=== PATIENT | female | born 1980 | race Asian ===

== ENCOUNTER 2017-07-12 07:30 | Inpatient (IN) | payer OTHER ==
[2017-07-12 08:39] VITALS: BMI 24.6
[2017-07-12] MEDS ORDERED: CITRIC ACID/SODIUM CITRATE 30 ML UNIT-DOSE CUP PO ONE (09:09)
[2017-07-12] MEDS ORDERED: ceFAZolin SODIUM 1 GM VIAL ONE (09:14)
[2017-07-12] MEDS ORDERED: morphine SULFATE/Preservative Free 0.5 MG/ML (1cc Syringe) ONE (09:15)
[2017-07-12] MEDS ORDERED: ELECTROLYTE-148 SOLN 1,000 ML IV SCH ×2 (09:15)
--- NOTE | 2017-07-12 09:19 | HP ---
Past Medical History - Primary Care Physician PCP:: Sinan Salazar - Admission Chief Complaint: 36yo P1 with at EGA 39w4d admitted for repeat C/S. History of Present Illness: at EGA 39w4d with previous C/S. AMA GBS(+) GDM A2 History Source: Patient, Medical Record Limitations to Obtaining History: No Limitations - Past Medical History SALAD CHEF: No: Alzheimer's, CVA, Dementia, Migraine, Multiple Sclerosis, Peripheral Neuropathy, Parkinson's, Seizure, Syncope, TIA, Vertigo, Other Cardiovascular: No: AFIB, Aneurysm, Aortic Insufficiency, Aortic Stenosis, CAD, CHF, Deep Vein Thrombosis, HTN, Hyperlipdemia, VT, Mitral Insufficiency, Mitral Stenosis, Murmur, Pulmonary Hypertension, Other Pulmonary: No: Asthma, Bronchitis, Cancer, COPD, O2 Dependent, Pneumonia, Previously Intubated, Pulmonary Embolus, Pulmonary Fibrosis, Sleep Apnea, Other Gastrointestinal: No: Ascites, Cancer, Constipation, Crohn's Disease, Diverticulitis, Diverticulosis, Esophageal Varices, Gastritis, GERD, GI Bleed, Hemorrhoids, Hiatal Hernia, Inflamatory Bowel Disease, Irritable Bowel Disease, Pancreatitis, Peptic Ulcer Disease, Ulcerative Colitis, Other Hepatobiliary: No: Cirrhosis, Cholelithiasis, Cholecystitis, Choledocholithiasis , Hepatitis A, Hepatitis B, Hepatitis C, Other Renal/: No: Renal Failure, Renal Inusuff, BPH, Cancer, Hematuria, Hemodialysis , Neurogenic Bladder, Renal Calculi, UTI, Other Reproductive: No: Ectopic , Endometriosis, Fibroids, PID, Polycystic Ovary Syndrome, Postmenopausal, Other ...: 2 ...Para: 1 ...Term: 1 ...: 0 ...Spon : 0 ...Induced : 0 ...Multiple Gestation: 0 ...LMP: 10/08/16 ... Weeks Gestation by Dates: 39.4 ...EDC by Dates: 07/15/17 Heme/Onc: No: Anemia, B12 Deficiency, Bleeding Disorder, Cancer, Current Chemotherapy, Current Radiation Therapy, Hemochromatosis, Hypercoaguable State, Myeloproliferative Synd, Sickle Cell Disease, Sickle Cell Trait, Thrombocytopenia, Other Infectious Disease: No: AIDS, C-Diff, Herpes Zoster, HIV, MRSA, STD's, Tuberculosis, VREF, Other Psych: No: Addictions, Anxiety, Bipolar, Depression, Panic, Psychosis, Schizophrenia, Other Musculoskeletal: No: Bursitis, Chronic low back pain, Hemiparesis, Hemiplegia, Osteoarthritis, Paraplegia, Other Rheumatology: No: Fibromyalgia, Gout, Lupus, Rheumatoid Arthritis, Sarcoidosis, Vasculitis, Other ENT: No: Allergic Rhinitis, Sinusitis, Other Endocrine: Yes: Hypothyroidism Dermatology: No: Basal Cell, Cellulitis, Eczema, Melanoma, Psoriasis, Squamous Cell, Other - Past Surgical History Past Surgical History: Yes: None Hx Myomectomy: No Hx Transabdominal Cerclage: No - Smoking History Smoking history: Never smoked Have you smoked in the past 12 months: No - Alcohol/Substance Use Hx Alcohol Use: No History of Substance Use: reports: None - Social History Usual Living Arrangement: Yes: With Spouse, With Child ADL: Independent History of Recent Travel: No Home Medications - Allergies Allergies/Adverse Reactions: Allergies Allergy/AdvReac Type Severity Reaction Status Date / Time lactose AdvReac Verified 07/12/17 08:06 - Home Medications Home Medications: Ambulatory Orders Levothyroxine [Synthroid -] 75 mcg PO DAILY 08/15/11 Insulin (Levemir) [Levemir Flexpen -] 18 units SQ DAILY 07/12/17 Family Disease History - Family Disease History Family History: Denies Review of Systems - Review of Systems Constitutional: reports: No Symptoms Eyes: reports: No Symptoms HENT: reports: No Symptoms Neck: reports: No Symptoms Cardiovascular: reports: No Symptoms Respiratory: reports: No Symptoms Gastrointestinal: reports: No Symptoms Genitourinary: reports: No Symptoms Breasts: reports: No Symptoms Reported Musculoskeletal: reports: No Symptoms Integumentary: reports: No Symptoms Neurological: reports: No Symptoms Endocrine: reports: No Symptoms Hematology/Lymphatic: reports: No Symptoms Psychiatric: reports: No Symptoms Pain Intensity: 0 Physical Exam - Maternity Vital Signs: Vital Signs Temperature 97.6 F 07/12/17 08:34 Pulse Rate 70 07/12/17 08:34 Respiratory Rate 20 07/12/17 08:34 Blood Pressure 118/72 07/12/17 08:34 O2 Sat by Pulse Oximetry (%) Constitutional: Yes: Well Nourished, No Distress, Calm Eyes: Yes: WNL, Conjunctiva Clear HENT: Yes: WNL, Atraumatic, Normocephalic Neck: Yes: WNL, Supple, Trachea Midline Cardiovascular: Yes: WNL, Regular Rate and Rhythm Lungs: Clear to auscultation, Normal air movement Breast(s): Yes: WNL - Abdominal Exam/OB Fundal Height: 37 Number of Fetuses: Single Presentation: Vertex Contractions: No Regularity: Irritability Intensity: Unaware Monitor Mode: External Heart Rate (range): 130 Heart Rate Location: Midline Category: I Accelerations: Non-Uniform Decelerations: None - Vaginal Exam/OB Vaginal Bleediing: No Presentation: Vertex/Position - Physical Exam Musculoskeletal: Yes: WNL Extremities: Yes: WNL Edema: No Integumentary: Yes: WNL Deep Tendon Reflex Grade: Normal +2 ...Motor Strength: WNL Psychiatric: Yes: WNL, Alert, Oriented Hemorrhage Risk Assessment - Risk Factors Medium Risk Factors: Yes: Prior , uterine surgery,or multiple laparotomies High Risk Factors: Yes: None Risk Score: 1 Risk Level: Medium Risk Imaging - Results Ultrasound: Report Reviewed Assessment/Plan 36yo P1 with at EGA 39w4d admitted for repeat C/S. We discussed the risks and benefits of C/S at length, including but not limited to scarring, pain , bleeding, infection, injury to underlying organs and structures, need for additional surgery to repair/treat any problems or complications, complications/injuries, etc. The pt verbalized her understanding and requested to proceed with surgery.
[2017-07-12] MEDS ORDERED: ONDANSETRON 4 MG/2 ML VIAL IVPUSH PRN (10:48)
[2017-07-12] MEDS ORDERED: IBUPROFEN 600 MG TABLET (FP) PO PRN (10:48)
[2017-07-12] MEDS ORDERED: morphine SULFATE/Preservative Free 0.5 MG/ML (1cc Syringe) SPIN ONE (10:48)
[2017-07-12] MEDS: LEVOTHYROXINE NA 75 MCG TABLET (FP) PO SCH (10:55)
[2017-07-12] MEDS ORDERED: TUBERCULIN PPD 5 TU/0.1ML SYRINGE (IN PATIENT USE ONLY) ID ONE (11:00)
[2017-07-12] MEDS ORDERED: oxyCODONE HCL 5 MG TABLET PO PRN (11:19)
[2017-07-12] MEDS ORDERED: METHYLERGONOVINE MALEATE 0.2 MG/1 ML AMP IM PRN (11:19)
[2017-07-12] MEDS ORDERED: WITCH HAZEL 50% (TUCKS) 40 PAD/JAR PAD TP PRN (11:19)
[2017-07-12] MEDS ORDERED: IBUPROFEN 800 MG/8 ML IJ IVPB ONE (12:08)
[2017-07-12] MEDS: IBUPROFEN 800 MG/8 ML IJ IVPB PRN ×2 (12:12→21:31)
[2017-07-12] MEDS: ENOXAPARIN NA (PORCINE) 40 MG/0.4 ML DISP.SYRIN SQ SCH (12:36)
[2017-07-12] MEDS ORDERED: OXYTOCIN 20 UNITS in 0.9% NS 20 UNIT/1,000 ML INFUS.BAG IV ONE (12:41)
--- NOTE | 2017-07-12 12:58 | PN ---
Delivery - Delivery Section: Repeat, Low Flap Transverse Type of Anesthesia: Spinal Episiotomy/Laceration: None EBL (cc): 500 Delivery, Single - Stages of Labor Date of Delivery: 07/12/17 Time of Delivery: 10:10 Date Placenta Delivered: 07/12/17 Time Placenta Delivered: 10:11 Placenta: Yes: Manual Removal, Normal Configuration - Condition of Siding Applicator/Professor Criminal Justice Present: Yes Name: Latoya Alaniz Gender: Male Weight: 3.26 kg Position: Left, OT Total Hours ROM (Hrs/Mins): 0hrs 2min - 1 Minute Total Score: 9 5 Minutes Total Score: 9 - Feeding Plan Initial Plan: Elected not to breastfeed exclusively throughout hospitalization Remarks - Remarks Remarks: Uncomplicated repeat LT C/S
--- NOTE | 2017-07-12 13:00 | OP ---
Operative Note - Note: Operative Date: 07/12/17 Pre-Operative Diagnosis: at 39w 4d, prior C/S, declined Operation: Repeat LT C/S Findings: Live baby boy in vtx presentation. No meconium. Normal uterus, ovaries, tubes Post-Operative Diagnosis: Same as Pre-op Surgeon: Sinan Salazar Incident Handler: Nuria Moreno Anesthesiologist/LEASE ADMINISTRATION ANALYST: Dominik Shine Anesthesia: Spinal Specimens Removed: Placenta Estimated Blood Loss (mls): 500 Drains & Tubes with Location: Rodriguez cath Drains, Volume Out (mls): 300 Blood Volume Replaced (mls): 0 Fluid Volume Replaced (mls): 2,100 Operative Report Dictated: Yes
[2017-07-12] MEDS ORDERED: OXYTOCIN 20 UNITS in 0.9% NS 20 UNIT/1,000 ML INFUS.BAG IV SCH (13:30)
[2017-07-13] MEDS: IBUPROFEN 800 MG/8 ML IJ IVPB PRN (05:41)
[2017-07-13] MEDS: LEVOTHYROXINE NA 75 MCG TABLET (FP) PO SCH (06:54)
--- NOTE | 2017-07-13 08:15 | OP ---
DATE OF OPERATION: 07/12/2017 PREOPERATIVE DIAGNOSIS: at estimated gestational age of 39 weeks and 4 days, previous section, patient declines vaginal after section. POSTOPERATIVE DIAGNOSIS: at estimated gestational age of 39 weeks and 4 days, previous section, patient declines vaginal after section. PROCEDURE: Repeat low transverse section via Pfannenstiel skin incision. SURGEON: Sinan Salazar MD BILINGUAL SALES REPRESENTATIVE: Nuria Moreno MD ANESTHESIOLOGIST: Dominik Shine MD ANESTHESIA: Spinal. COMPLICATIONS: None. ESTIMATED BLOOD LOSS: 500 mL. INTRAVENOUS FLUIDS: 2100 mL. URINE OUTPUT: Clear urine, 300 mL, at the end of the procedure. PATHOLOGY: Placenta. FINDINGS: Normal uterus, fallopian tubes and ovaries. Live baby boy in vertex presentation. No meconium in amniotic fluid. DESCRIPTION OF PROCEDURE: The patient was met preoperatively. Risks, benefits, and alternatives of surgery were discussed in details. All questions were answered. The patient was brought to the OR with the IV running. She was placed on the surgical table in a sitting position. The spinal anesthesia was achieved without difficulty. The patient was then placed in a supine position with a leftward tilt. She was prepped and draped in the usual sterile fashion. A Rodriguez catheter was left to drain to gravity. The surgeons then proceeded with the operation. A Pfannenstiel skin incision was made with the knife along the prior scar. The incision was taken down to the level of fascia. The fascia was incised in the midline, and the incision was extended bilaterally using Chavez scissors. The fascia was dissected away from the rectus muscle superiorly and inferiorly using sharp dissection. The rectus muscles were in the midline. The peritoneum was identified and entered sharply. The peritoneal incision was extended superiorly and inferiorly. The bladder was dissected away from the lower uterine segment using sharp dissection. The bladder was reflected downwards. Using a Jalen retractor, the uterus was incised transversely in the lower uterine segment. The uterine incision was extended bilaterally using bandage scissors. The baby was delivered from vertex presentation without complications. The umbilical cord was clamped and cut. The baby was crying spontaneously and was handed to the awaiting demurrage man. The placenta was removed manually and without complications. The uterus was then cleared of all clots and debris using laparotomy laps. The uterine incision was repaired using a 0 Biosyn suture with a running locking stitch. Good hemostasis was noted. The uterine incision was then imbricated using a 0 Biosyn suture with good hemostasis and approximation. The bladder peritoneum was approximated using a 0 Biosyn suture. The operative site was then irrigated using copious amounts of normal saline. Once the saline was aspirated, good hemostasis was confirmed. The abdominal peritoneum was then closed using a 2-0 chromic suture. The rectus muscles were approximated in the midline using several 2-0 chromic sutures. The fascia was closed using a 0 Vicryl suture with a running stitch. The subcutaneous adipose tissues and Scarpas fascia were approximated using several interrupted 2-0 chromic sutures. The skin was closed using a 4-0 Vicryl suture with a subcutaneous stitch. Sponge, lap, and instrument counts were correct. The patient was transferred to the recovery room in stable condition. Nino [id number]
[2017-07-13 08:18] LABS: BASO % 0.5 % (0-2.0); EOS % 0.5 % (0-4.5); HEMATOCRIT 32.8 % (32.4-45.2); HEMOGLOBIN 11.1 GM/dL (10.7-15.3); LYMPH % 10.5 % (8-40); MCH 27.8 pg (25.7-33.7); MCHC 33.8 g/dl (32.0-36.0); MEAN CELL VOLUME 82.1 fl (80-96); MEAN PLT VOLUME 10.2 fl (7.5-11.1); MONO % 5.8 % (3.8-10.2); NEUT % 82.7 % (42.8-82.8); PLATELET COUNT 165 K/MM3 (134-434); RDW 15.7 % (11.6-15.6); WHITE BLOOD COUNT 9.9 K/mm3 (4.0-10.0)
[2017-07-13] MEDS: PRENATAL VITAMINS W/ FOLIC ACID TABLET (FP) PO SCH (09:20)
[2017-07-13] MEDS: ACETAMINOPHEN 325 MG TABLET (FP) PO PRN ×3 (09:21→21:20)
[2017-07-13] MEDS: ENOXAPARIN NA (PORCINE) 40 MG/0.4 ML DISP.SYRIN SQ SCH (09:21)
[2017-07-13] MEDS: IBUPROFEN 600 MG TABLET (FP) PO PRN ×3 (09:25→21:19)
[2017-07-13] MEDS: SIMETHICONE 80 MG TAB.CHEW (FP) PO PRN ×2 (09:27→21:17)
--- NOTE | 2017-07-13 09:29 | PN ---
Progress Note (short form) - Note Progress Note: pod 1 doing well, no c/o ,no excess vaginal bleeding, CBC, BMP 07/13/17 07:30 Last Vital Signs Temp Pulse Resp BP Pulse Ox 98.1 F 67 18 90/63 100 07/13/17 08:20 07/13/17 08:20 07/13/17 08:20 07/13/17 08:20 07/12/17 12:05 abdomen soft, no distension , no cva incison dry, clean no calf tenderness impression pod 1 afebrile , plan ambualte , advance diet pain management
[2017-07-13] MEDS ORDERED: BISACODYL 10 MG SUPP.RECT RC PRN (11:19)
--- NOTE | 2017-07-13 15:20 | PN ---
Progress Note (short form) - Note Progress Note: Anesthesiology 36 y.o. POD#1 s/p repeat C/S under spinal anesthesia. Pt. feels well, sitting-up in bed. She denies h/a. She did have some n/v yesterday but this has resolved. She is able to walk and has no residual paresthesia. VSS. 36 y.o. with stable post-operative course. Continue management as per primary team.
[2017-07-14] MEDS: IBUPROFEN 600 MG TABLET (FP) PO PRN ×4 (01:08→19:51)
[2017-07-14] MEDS: ACETAMINOPHEN 325 MG TABLET (FP) PO PRN ×4 (01:08→19:54)
[2017-07-14] MEDS: SIMETHICONE 80 MG TAB.CHEW (FP) PO PRN ×4 (01:08→19:51)
[2017-07-14] MEDS: LEVOTHYROXINE NA 75 MCG TABLET (FP) PO SCH (06:31)
[2017-07-14] MEDS: PRENATAL VITAMINS W/ FOLIC ACID TABLET (FP) PO SCH (09:47)
[2017-07-14] MEDS: ENOXAPARIN NA (PORCINE) 40 MG/0.4 ML DISP.SYRIN SQ SCH (09:47)
--- NOTE | 2017-07-14 15:00 | PN ---
Progress Note (short form) - Note Progress Note: pod 2 no c/o passing gas , voids ok, CBC, BMP 07/13/17 07:30 Last Vital Signs Temp Pulse Resp BP Pulse Ox 98.4 F 68 18 105/64 100 07/14/17 08:20 07/14/17 08:20 07/14/17 08:20 07/14/17 08:20 07/12/17 12:05 abdomen soft, no distension, no cva incision dry, clean no no calf tenderness plan ambulate cbc in am
[2017-07-15] MEDS: LEVOTHYROXINE NA 75 MCG TABLET (FP) PO SCH (06:23)
[2017-07-15] MEDS: IBUPROFEN 600 MG TABLET (FP) PO PRN ×3 (06:45→21:38)
[2017-07-15] MEDS: ACETAMINOPHEN 325 MG TABLET (FP) PO PRN ×3 (06:47→21:41)
[2017-07-15] MEDS: SIMETHICONE 80 MG TAB.CHEW (FP) PO PRN ×3 (06:48→21:38)
--- NOTE | 2017-07-15 08:02 | DS ---
Physical Exam-FINANCIAL AID ADVISOR Vital Signs: Vital Signs Temperature 97.8 F 07/14/17 22:00 Pulse Rate 75 07/14/17 22:00 Respiratory Rate 18 07/14/17 22:00 Blood Pressure 129/77 07/14/17 22:00 O2 Sat by Pulse Oximetry (%) 100 07/12/17 12:05 Constitutional: Yes: Well Nourished, No Distress, Calm Eyes: Yes: WNL, Conjunctiva Clear, EOM Intact HENT: Yes: WNL, Atraumatic, Normocephalic Neck: Yes: WNL, Supple, Trachea Midline Cardiovascular: Yes: WNL, Regular Rate and Rhythm Respiratory: Yes: WNL, Regular, CTA Bilaterally Gastrointestinal: Yes: WNL ...Rectal Exam: Yes: WNL Renal/: Yes: WNL ....Post : Yes: Uterus firm, Uterus non-tender, Slight lochia rubra Breast(s): Yes: WNL Musculoskeletal: Yes: WNL Extremities: Yes: WNL Edema: Yes Edema: LLE: Trace, RLE: Trace Integumentary: Yes: WNL Wound/Incision: Yes: Clean/Dry, Well Approximated, Sutures Intact Neurological: Yes: WNL, Alert, Oriented ...Motor Strength: WNL Psychiatric: Yes: WNL, Alert, Oriented Delivery - Delivery Section: Repeat, Low Flap Transverse Type of Anesthesia: Spinal Episiotomy/Laceration: None EBL (cc): 500 Delivery, Single - Stages of Labor Date of Delivery: 07/12/17 Time of Delivery: 10:10 Time Placenta Delivered: 10:11 Placenta: Yes: Manual Removal, Normal Configuration - Condition of Infant Herb Counselor/Second Grade Teacher Present: Yes Name: Latoya Alaniz Gender: Male Weight: 7 lb 3 oz Position: Left, OT Total Hours ROM (Hrs/Mins): 0hrs 2min - 1 Minute Total Score: 9 5 Minutes Total Score: 9 - [place] Feeding Plan Initial Plan: Elected not to breastfeed exclusively throughout hospitalization Discharge Summary Reason For Visit: C/SECTION Procedures: Principal: repeat LST c/s Hospital Course: no complication Condition: Good - Instructions Diet, Activity, Other Instructions: regular diet, follow up office 1 week, if fever, pain. heavy vaginal bleeding call Referrals: Salvador Nugent MD [Staff Physician] - Disposition: HOME - Home Medications Comprehensive Discharge Medication List: Ambulatory Orders Levothyroxine [Synthroid -] 75 mcg PO DAILY 08/15/11 Insulin (Levemir) [Levemir Flexpen -] 18 units SQ DAILY 07/12/17 Ibuprofen [Motrin -] 600 mg PO QID #28 tablet 07/14/17
[2017-07-15 08:18] LABS: BASO % 0.3 % (0-2.0); EOS % 1.5 % (0-4.5); HEMATOCRIT 36.9 % (32.4-45.2); HEMOGLOBIN 12.3 GM/dL (10.7-15.3); LYMPH % 13.9 % (8-40); MCH 27.4 pg (25.7-33.7); MCHC 33.3 g/dl (32.0-36.0); MEAN CELL VOLUME 82.5 fl (80-96); MONO % 4.2 % (3.8-10.2); NEUT % 80.1 % (42.8-82.8); PLATELET COUNT 228 K/MM3 (134-434); RBC 4.47 M/mm3 (3.60-5.2); RDW 16.1 % (11.6-15.6); WHITE BLOOD COUNT 9.5 K/mm3 (4.0-10.0)
[2017-07-15] MEDS: PRENATAL VITAMINS W/ FOLIC ACID TABLET (FP) PO SCH (09:42)
[2017-07-15] MEDS: ENOXAPARIN NA (PORCINE) 40 MG/0.4 ML DISP.SYRIN SQ SCH (09:42)
[2017-07-15] MEDS ORDERED: SENNOSIDES/DOCUSATE COMBO (SENNA PLUS) TABLET (UD) PO PRN (21:09)
[2017-07-16] MEDS: LEVOTHYROXINE NA 75 MCG TABLET (FP) PO SCH (06:24)
[2017-07-16] MEDS: SIMETHICONE 80 MG TAB.CHEW (FP) PO PRN (06:25)
[2017-07-16] MEDS: IBUPROFEN 600 MG TABLET (FP) PO PRN (06:25)
[2017-07-16] MEDS: ACETAMINOPHEN 325 MG TABLET (FP) PO PRN (06:27)
[2017-07-16 09:04] VITALS: BP 111/67; PULSE 60; TEMP 98.1
--- NOTE | 2017-07-16 09:26 | PN ---
Post Progress Note - Subjective Subjective: 36yo P2 now s/p Repeat c/section Post Day: 4 Type of Delivery: Repeat C/S Vital Signs: Vital Signs Temperature 98.1 F 07/16/17 09:02 Pulse Rate 60 07/16/17 09:02 Respiratory Rate 20 07/16/17 09:02 Blood Pressure 111/67 07/16/17 09:02 O2 Sat by Pulse Oximetry (%) 100 07/12/17 12:05 Breast Exam: Yes: Engorged Uterus: Yes: Fundus Firm Incision: Yes: Sutures intact Abdomen/GI: Yes: Abdomen soft Lochia: Yes: Rubra Lochia, amount: Small Extremities: Yes: Calves non-tender - Labs Labs: CBC WBC 9.5 K/mm3 (4.0-10.0) 07/15/17 07:15 RBC 4.47 M/mm3 (3.60-5.2) 07/15/17 07:15 Hgb 12.3 GM/dL (10.7-15.3) D 07/15/17 07:15 Hct 36.9 % (32.4-45.2) 07/15/17 07:15 MCV 82.5 fl (80-96) 07/15/17 07:15 MCH 27.4 pg (25.7-33.7) 07/15/17 07:15 MCHC 33.3 g/dl (32.0-36.0) 07/15/17 07:15 RDW 16.1 % (11.6-15.6) H 07/15/17 07:15 Plt Count 228 K/MM3 (134-434) D 07/15/17 07:15 MPV 10.0 fl (7.5-11.1) 07/15/17 07:15 Neutrophils % 80.1 % (42.8-82.8) 07/15/17 07:15 Lymphocytes % 13.9 % (8-40) D 07/15/17 07:15 Monocytes % 4.2 % (3.8-10.2) 07/15/17 07:15 Eosinophils % 1.5 % (0-4.5) D 07/15/17 07:15 Basophils % 0.3 % (0-2.0) 07/15/17 07:15 Assessment/Plan 36yo P2 s/p Repeat c/section doing well VSS, Afibrile breast care and incision care instructed NPV x 6 wks RTO 1 wk D/C home
[2017-07-16] MEDS: PRENATAL VITAMINS W/ FOLIC ACID TABLET (FP) PO SCH (09:42)
[2017-07-16] MEDS: ENOXAPARIN NA (PORCINE) 40 MG/0.4 ML DISP.SYRIN SQ SCH (09:42)
--- NOTE | 2017-07-17 14:00 | PATH ---
Surgical Pathology Report Patient Name: ROSS BLAIR [facility]. Rec. #: [id number] /Age/Gender: 1980 (Age: 36) / F Account: [id number] Location: [facility] OBS/SOFTWARE QA SYSTEM SPECIALIST Taken: 07/12/2017 Received: 07/15/2017 Reported: 07/17/2017 Physicians: Sinan Salazar M.D. Specimen(s) Received PLACENTA Clinical History , repeat Final Diagnosis PLACENTA, SECTION: 473 g THIRD TRIMESTER PLACENTA WITH TRIVASCULAR UMBILICAL CORD AND UNREMARKABLE PLACENTAL MEMBRANES. Electronically Signed Bekah Ortez M.D. Gross Description The specimen is received fresh labeled placenta and is a 473 gram, 18.0 x 15.0 x 2.2 cm. placenta with attached membranes and umbilical cord. The attached membranes are dobbins, translucent with focal opacities and insert marginally. The umbilical cord measures 16 cm. in length and averages 1.2 cm. in diameter. The cord inserts eccentrically, 5 cm. to the nearest margin. No true knots or strictures are identified. Cut surface of the umbilical cord reveals 3 vessels. The surface is jiang blue with moderate fibrin deposition and appropriate caliber vessels. The maternal surface is red-brown with focal defects. Sectioning reveals red-brown, spongy parenchyma. No lesions are identified. Adult Care Manager sections are submitted in three cassettes as follows: 1- membrane rolls and umbilical cord; 2-3- full thickness sections of placenta. 07/16/2017 saudi07/16/2017
== END 2017-07-16 14:10 | disposition home or self-care (01) | DRG 766 ==
LOC: JLDR 07:30 → J3W 12:58
PROVIDERS: ADMIT Obstetrics & Gynecology; ATTEND Obstetrics & Gynecology
PROC: 10D00Z1 Extraction of Products of Conception, Low, Open Approach (ICD-10-PCS; principal; 2017-07-12)
DX: O34.211 Maternal care for low transverse scar from previous cesarean delivery (principal); O24.424 Gestational diabetes mellitus in childbirth, insulin controlled; O99.284 Endocrine, nutritional and metabolic diseases complicating childbirth; E03.9 Hypothyroidism, unspecified; O99.824 Streptococcus B carrier state complicating childbirth; Z3A.39 39 weeks gestation of pregnancy; Z37.0 Single live birth
CPT/HCPCS: 36415; 82962; 85025; 88307-TC